=== PATIENT | female | born 1985 | race Hispanic/Latino ===

== ENCOUNTER 2017-09-09 13:32 | Emergency (ER) | payer SELFPAY ==
[2017-09-09] MEDS ORDERED: MORPHINE 4 MG/ML SYR ONE (14:25)
[2017-09-09] MEDS ORDERED: ONDANSETRON 4 MG (ODT) TAB ONE (14:25)
[2017-09-09 14:36] LABS: Urine Blood NEGATIVE (NEG); Urine Glucose NEGATIVE (NEG); Urine Protein NEGATIVE (NEG); Urine pH 5.5 (5.0-7.0)
--- NOTE | 2017-09-09 14:56 | RAD REPORT ---
EXAM DESCRIPTION: CT - Thorax Wo Con - 09/09/2017 2:36 pm CLINICAL HISTORY: Chest pain status post fall COMPARISON: None TECHNIQUE: Computed axial tomography of the chest was obtained. Contrast was not requested. All CT scans are performed using dose optimization technique as appropriate and may include automated exposure control or mA/KV adjustment according to patient size. FINDINGS: The evaluation of mediastinum, cait and vessels is limited secondary to lack of IV contras t administration. A pulmonary contusion is not present. A few areas scarring or subsegmental atelectasis are present wi thin the right middle lobe and lingula A mediastinal hematoma is not noted. A displaced rib fracture is not seen A pleural effusion is not present. A pericardial effusion is not present. IMPRESSION: A few areas scarring or subsegmental atelectasis are present within the right middle lo be and lingula. Otherwise unremarkable unenhanced CT chest
--- NOTE | 2017-09-09 15:00 | EDPHYS ---
Physician Documentation [facility] Name: Rain Walker Age: 31 yrs Sex: Female : 1985 Arrival Date: 09/09/2017 Time: 13:34 Bed 9 Private MD: None, None ED Physician Christopher Francois HPI: 09/09 14:14 This 31 yrs old Female presents to ER via Ambulatory with complaints of Fall jr8 Injury. 14:14 Details of fall: The patient fell from an upright position, while standing. Onset: The jr8 symptoms/episode began/occurred acutely, yesterday, last night. Associated injuries: The patient sustained injury to the chest, tenderness. Severity of symptoms: At their worst the symptoms were moderate, in the emergency department the symptoms are unchanged. The patient has not experienced similar symptoms in the past. The patient has not recently seen a physician. slipped getting out of shower. Landed on right chest. Hit side of tub. Pain with shortness of breath since incident . 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 - Social history:: Smoking status: Patient/guardian denies using tobacco. ROS: 14:14 Eyes: Negative for injury, pain, redness, and discharge, ENT: Negative for injury, jr8 pain, and discharge, Neck: Negative for injury, pain, and swelling, Abdomen/GI: Negative for abdominal pain, nausea, vomiting, diarrhea, and constipation, Back: Negative for injury and pain, MS/Extremity: Negative for injury and deformity, Skin: Negative for injury, rash, and discoloration, Neuro: Negative for headache, weakness, numbness, tingling, and seizure. 14:14 Cardiovascular: Positive for chest pain, with movement, Negative for edema, orthopnea, palpitations, paroxysmal nocturnal dyspnea. 14:14 Respiratory: Positive for shortness of breath, Negative for cough, dyspnea on exertion, hemoptysis, orthopnea, pleurisy, sputum production, wheezing. Exam: 14:14 Eyes: Pupils equal round and reactive to light, extra-ocular motions intact. Lids and jr8 lashes normal. Conjunctiva and sclera are non-icteric and not injected. Cornea within normal limits. Periorbital areas with no swelling, redness, or edema. ENT: Nares patent. No nasal discharge, no septal abnormalities noted. Tympanic membranes are normal and external auditory canals are clear. Oropharynx with no redness, swelling, or masses, exudates, or evidence of obstruction, uvula midline. Mucous membranes moist. Neck: Trachea midline, no thyromegaly or masses palpated, and no cervical lymphadenopathy. Supple, full range of motion without nuchal rigidity, or vertebral point tenderness. No Meningismus. Cardiovascular: Regular rate and rhythm with a normal S1 and S2. No gallops, murmurs, or rubs. Normal PMI, no JVD. No pulse deficits. Respiratory: Lungs have equal breath sounds bilaterally, clear to auscultation and percussion. No rales, rhonchi or wheezes noted. No increased work of breathing, no retractions or nasal flaring. Abdomen/GI: Soft, non-tender, with normal bowel sounds. No distension or tympany. No guarding or rebound. No evidence of tenderness throughout. Back: No spinal tenderness. No costovertebral tenderness. Full range of motion. Skin: Warm, dry with normal turgor. Normal color with no rashes, no lesions, and no evidence of cellulitis. MS/ Extremity: Pulses equal, no cyanosis. Neurovascular intact. Full, normal range of motion. Neuro: Awake and alert, GCS 15, oriented to person, place, time, and situation. Cranial nerves II-XII grossly intact. Motor strength 5/5 in all extremities. Sensory grossly intact. Cerebellar exam normal. Normal gait. 14:14 Chest/axilla: Inspection: normal, Palpation: tenderness, that is moderate, of the right lateral anterior chest, Axilla: are normal, Breasts: are normal, Lymph nodes: lymphadenopathy is not appreciated. Vital Signs: 13:43 BP 160 / 96; Pulse 100; Resp 18 S; Temp 97.5(TE); Pulse Ox 98% on R/A; Weight 122.47 iw kg; Height 5 ft. 8 in. (172.72 cm); Pain 9/10; 13:43 Body Mass Index 41.05 (122.47 kg, 172.72 cm) iw Pike Coma Score: 15:10 Eye Response: spontaneous(4). Verbal Response: oriented(5). Motor Response: obeys iw commands(6). Total: 15. Trauma Score (Adult): 13:44 Eye Response: spontaneous(1); Verbal Response: oriented(1); Motor Response: obeys iw commands(2); Systolic BP: > 89 mm Hg(4); Respiratory Rate: 10 to 29 per min(4); Pike Score: 15; Trauma Score: 12 MDM: 13:51 Patient medically screened. [facility] 14:59 Data reviewed: vital signs, nurses notes, radiologic studies, CT scan, and as a result, 8 I will discharge patient. Data interpreted: Pulse oximetry: on room air is 98 %. Interpretation: normal. Counseling: I had a detailed discussion with the patient and/or guardian regarding: the historical points, exam findings, and any diagnostic results supporting the discharge/admit diagnosis, radiology results, the need for outpatient follow up, a family practitioner, to return to the emergency department if symptoms worsen or persist or if there are any questions or concerns that arise at home. 09/09 14:25 Order name: Urine Dipstick--Ancillary (enter results); Complete Time: 14:48 [facility] 09/09 14:25 Order name: Urine --Ancillary (enter results); Complete Time: 14:48 [facility] 09/09 14:13 Order name: CT Chest Wo Con; Complete Time: 14:57 [facility] 09/09 14:13 Order name: Urine Test (obtain specimen); Complete Time: 14:22 [facility] 09/09 14:13 Order name: Urine Dipstick-Ancillary (obtain specimen); Complete Time: 14:22 [facility] Administered Medications: 14:30 Drug: morphine 4 mg Route: IM; Site: right deltoid; sg 15:00 Follow up: Response: No adverse reaction; Pain is decreased iw 14:34 Drug: Zofran 4 mg Route: PO; sg 15:00 Follow up: Response: No adverse reaction iw Disposition: 18:02 Co-signature as Attending Physician, Christopher Francois MD I agree with the assessment and kdr plan of care. Disposition: 09/09/17 15:00 Discharged to Home. Impression: Chest wall contusion . - Condition is Stable. - Discharge Instructions: Rib Contusion, Chest Wall Pain, Chest Contusion. - Prescriptions for Ibuprofen 800 mg Oral Tablet - take 1 tablet by ORAL route every 12 hours As needed take with food; 20 tablet. Tylenol- Codeine #3 300-30 mg Oral Tablet - take 2 tablets by ORAL route every 6 hours As needed; 20 tablet. - Medication Reconciliation Form, Thank You Letter, Antibiotic Education, Prescription Opioid Use form. - Follow up: Private Physician; When: 5 - 6 days; Reason: Recheck today's complaints, Continuance of care, Re-evaluation by your physician. - Problem is new. - Symptoms have improved. Signatures: Dispatcher [employer] EDMS Jose Morejon RN RN sg Christopher Francois MD MD kdr Taylor Mcnulty RN RN iw Efren Swartz PA PA jr8 Corrections: (The following items were deleted from the chart) 15:11 15:00 09/09/2017 15:00 Discharged to Home. Impression: Chest wall contusion . Condition iw is Stable. Forms are Medication Reconciliation Form, Thank You Letter, Antibiotic Education, Prescription Opioid Use. Follow up: Private Physician; When: 5 - 6 days; Reason: Recheck today's complaints, Continuance of care, Re-evaluation by your physician. Problem is new. Symptoms have improved. jr8
--- NOTE | 2017-09-09 15:00 | ER ---
Nurse's Notes [facility] Name: Rain Walker Age: 31 yrs Sex: Female : 1985 Arrival Date: 09/09/2017 Time: 13:34 Bed 9 Private MD: None, None Diagnosis: Chest wall contusion Presentation: 09/09 13:41 Presenting complaint: Patient states: fell yesterday, slipped on shower mat, fell right iw side, hit bathtub, now having pain and difficulty breathing when she lies down. Care prior to arrival: None. Mechanism of Injury: Fall from standing position. Trauma event details: Injury occurred in the [facility], Injury occurred: at home. Injury occurred: September 08, 2017. 13:41 Acuity: SERGO 3 iw 13:41 Method Of Arrival: Ambulatory iw 13:44 Transition of care: patient was not received from another setting of care. Onset of iw symptoms was September 09, 2017. Initial Sepsis Screen: Does the patient meet any 2 criteria? No. Patient's initial sepsis screen is negative. Does the patient have a suspected source of infection? No. Patient's initial sepsis screen is negative. 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 - Social history:: Smoking status: Patient/guardian denies using tobacco. Screenin:43 Abuse screen: Denies threats or abuse. Denies injuries from another. Tuberculosis iw screening: No symptoms or risk factors identified. 15:10 Nutritional screening: No deficits noted. Fall Risk Fall in past 12 months (25 points). iw Primary Survey: 14:12 A: Airway: patent. Breathing/Chest: Respiratory pattern: regular, Respiratory effort: iw spontaneous. Circulation: Cardiac rhythm: Heart tones present. Pulses: palpable right radial artery and left radial artery. Skin color: pink, Skin temperature: warm, dry. Disability Alert. 15:10 Reassessment Airway Airway Patent Breathing/Chest Respiratory pattern Respiratory iw effort Spontaneous Unlabored. Assessment: 13:44 General: Appears uncomfortable, Behavior is cooperative, crying. Pain: Complains of iw pain in anterior aspect of right upper chest, right lateral posterior chest and right breast Pain currently is 9 out of 10 on a pain scale. Neuro: Level of Consciousness is awake, alert, obeys commands. Vital Signs: 13:43 BP 160 / 96; Pulse 100; Resp 18 S; Temp 97.5(TE); Pulse Ox 98% on R/A; Weight 122.47 iw kg; Height 5 ft. 8 in. (172.72 cm); Pain 9/10; 13:43 Body Mass Index 41.05 (122.47 kg, 172.72 cm) iw Webb Coma Score: 15:10 Eye Response: spontaneous(4). Verbal Response: oriented(5). Motor Response: obeys iw commands(6). Total: 15. Trauma Score (Adult): 13:44 Eye Response: spontaneous(1); Verbal Response: oriented(1); Motor Response: obeys iw commands(2); Systolic BP: > 89 mm Hg(4); Respiratory Rate: 10 to 29 per min(4); Trudi Score: 15; Trauma Score: 12 ED Course: 13:34 Patient arrived in ED. mr 13:35 None, None is Private Physician. mr 13:41 Patient has correct armband on for positive identification. iw 13:42 Triage completed. iw 13:45 Arm band placed on. iw 13:51 Efren Swartz PA is PHCP. jr8 13:51 Christopher Francois MD is Attending Physician. jr8 14:12 Taylor Mcnulty, KING is Primary Nurse. iw 14:34 CT completed. Patient tolerated procedure well. Patient moved to CT via wheelchair. sj Patient moved back from CT. 14:35 CT Chest Wo Con In Process Unspecified. EDMS 15:10 Patient maintains SpO2 saturation greater than 95% on room air. Thermoregulation: warm iw blanket given to patient. 15:10 No provider procedures requiring assistance completed. Patient did not have IV access iw during this emergency room visit. Administered Medications: 14:30 Drug: morphine 4 mg Route: IM; Site: right deltoid; sg 15:00 Follow up: Response: No adverse reaction; Pain is decreased iw 14:34 Drug: Zofran 4 mg Route: PO; sg 15:00 Follow up: Response: No adverse reaction iw Intake: 15:10 PO: 0ml; Total: 0ml. iw Outcome: 15:00 Discharge ordered by MD. butler 15:10 Discharged to home ambulatory. iw 15:10 Condition: good 15:10 Patient's length of stay was not longer than 2 hours. 15:10 Discharge instructions given to patient, Instructed on discharge instructions, follow iw up and referral plans. medication usage, Demonstrated understanding of instructions, follow-up care, medications, Prescriptions given X 2. 15:11 Patient left the ED. iw Signatures: Dispatcher [employer] EDMS Jose Morejon RN RN Kaitlin Best Susan sj Williams, Irene, RN RN Efren Swartz PA PA jr8
== END 2017-09-09 15:11 | disposition home or self-care (01) ==
LOC: ER 13:32
DX: S20.211A Contusion of right front wall of thorax, initial encounter (principal); W01.0XXA Fall on same level from slipping, tripping and stumbling without subsequent striking against object, initial encounter; Y93.89 Activity, other specified; Y92.002 Bathroom of unspecified non-institutional (private) residence as the place of occurrence of the external cause; Z88.0 Allergy status to penicillin
CPT/HCPCS: 71250; 81003; 81025; 96372; 99284

== ENCOUNTER 2018-05-27 02:22 | Emergency (ER) | payer SELFPAY ==
[2018-05-27] MEDS ORDERED: NA CHLORIDE 0.9% 1,000 ML ONE (03:12)
[2018-05-27 03:32] LABS: Absolute Lymphocytes (CBC) 2.3 K/uL (0.7-4.9); Absolute Monocytes 0.4 K/uL (0.1-1.3); Absolute Neutrophil 4.1 K/uL (1.8-8.0); BUN Blood Urea Nitrogen 11 mg/dL (7-18); Basophils % 0.6 % (0-1.3); Bicarbonate 25 mmol/L (21-32); Creatine Phosphokinase 86 U/L (26-192); Eosinophils % 2.2 % (0-4.4); Glucose Level 154 mg/dL (74-106); Hematocrit 44.2 % (36.0-45.0); Lymphocytes % 32.7 % (15.3-44.8); MPV 9.2 fL (7.6-11.3); Monocytes % 5.9 % (3.3-12.3); Potassium 3.6 mmol/L (3.5-5.1); RBC Red Blood Cell Count 5.01 M/uL (3.86-4.86); Sodium Level 140 mmol/L (136-145)
[2018-05-27 03:44] LABS: Urine Bacteria <20 /HPF (<20); Urine RBC NONE SEEN /HPF (NONE SEEN)
[2018-05-27 03:45] LABS: Urine Culture Reflex Order NOT NEEDED
[2018-05-27 03:48] LABS: Urine Blood NEGATIVE (NEG); Urine Glucose NEGATIVE (NEG); Urine Protein NEGATIVE (NEG)
--- NOTE | 2018-05-27 03:52 | ER ---
Nurse's Notes [facility] Name: Rain Walker Age: 32 yrs Sex: Female : 1985 Arrival Date: 05/27/2018 Time: 02:25 Bed 6 Private MD: Diagnosis: Streptococcal infection, unspecified site Presentation: 05/27 02:38 Presenting complaint: Patient states: Fever, body aches, chills, fatigue x 1 week with lp1 no improvement; States "I'm just worried because my dad has a lot of health problems and I don't know if I have them"; Denies any N/V/D. Transition of care: patient was not received from another setting of care. Onset of symptoms was May 27, 2018. Risk Assessment: Do you want to hurt yourself or someone else? Patient reports no desire to harm self or others. Initial Sepsis Screen: Does the patient meet any 2 criteria? No. Patient's initial sepsis screen is negative. Does the patient have a suspected source of infection? No. Patient's initial sepsis screen is negative. Care prior to arrival: None. 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 - Family history:: Father has/had diabetes, heart disease, hypertension. - Social history:: Smoking status: Patient uses tobacco products, smokes one pack cigarettes per day. - Ebola Screening: : No symptoms or risks identified at this time. - Hospitalizations: : No recent hospitalization is reported. Screenin:41 Abuse screen: Denies threats or abuse. Denies injuries from another. Nutritional lp1 screening: No deficits noted. Tuberculosis screening: No symptoms or risk factors identified. Fall Risk None identified. Assessment: 03:16 General: Appears uncomfortable, Behavior is calm, cooperative. Pain: Complains of pain ed1 in generalized Pain currently is 10 out of 10 on a pain scale. Quality of pain is described as aching, Pain began 2-3 days ago. Is continuous. Neuro: Level of Consciousness is awake, alert, obeys commands, Oriented to person, place, time, situation. Cardiovascular: Denies chest pain, Heart tones S1 S2 present. Respiratory: Reports cough that is non-productive, dry, Airway is patent Respiratory effort is even, unlabored, Respiratory pattern is regular, symmetrical, Breath sounds are clear bilaterally. GI: Abdomen is non-distended, Bowel sounds present X 4 quads. Abd is soft and non tender X 4 quads. Reports nausea, Patient currently denies diarrhea, vomiting. : No signs and/or symptoms were reported regarding the genitourinary system. EENT: Oral mucosa is moist. Derm: Skin is intact, is healthy with good turgor, Skin is dry, Skin is normal, Skin temperature is hot. Musculoskeletal: Circulation, motion, and sensation intact. Range of motion: intact in all extremities. 04:18 Reassessment: Patient appears in no apparent distress at this time. Patient and/or ed1 family updated on plan of care and expected duration. Pain level reassessed. Patient is alert, oriented x 3, equal unlabored respirations, skin warm/dry/pink. Patient states feeling better. Patient states symptoms have improved. Vital Signs: 02:39 BP 149 / 79; Pulse 98; Resp 18; Temp 99.6(O); Pulse Ox 97% on R/A; Weight 131.54 kg; ed1 Height 5 ft. 8 in. (172.72 cm); Pain 10/10; 04:18 BP 130 / 72; Pulse 86; Resp 18; Temp 98.4(O); Pulse Ox 100% on R/A; Pain 8/10; ed1 02:39 Body Mass Index 44.09 (131.54 kg, 172.72 cm) ed1 ED Course: 02:25 Patient arrived in ED. al2 02:26 Keisha Adamson, KING is Primary Nurse. ed1 02:27 Gomez Savage MD is Attending Physician. rn 02:39 Triage completed. lp1 02:39 Arm band placed on left wrist. lp1 03:16 Patient has correct armband on for positive identification. Placed in gown. Bed in low ed1 position. Call light in reach. Side rails up X 1. Pulse ox on. NIBP on. Door closed. Noise minimized. Lights dimmed. 03:16 Initial lab(s) drawn, by ED staff, sent to lab. Flu and/or RSV swab sent to lab. Strep ed1 swab sent to lab. Inserted saline lock: 22 gauge in right antecubital area, using aseptic technique. Blood collected. 04:18 No provider procedures requiring assistance completed. IV discontinued, intact, ed1 bleeding controlled, No redness/swelling at site. Pressure dressing applied. Administered Medications: 03:19 Drug: NS 0.9% 1000 ml Route: IV; Rate: 1000 ml; Site: right antecubital; ed1 04:17 Follow up: IV Status: Completed infusion; IV Intake: 1000ml ed1 03:56 Drug: Zithromax 500 mg Route: PO; ed1 04:17 Follow up: Response: No adverse reaction ed1 Intake: 04:17 IV: 1000ml; Total: 1000ml. ed1 Outcome: 03:52 Discharge ordered by MD. rn 04:18 Discharged to home ambulatory. ed1 04:18 Condition: good 04:18 Discharge instructions given to patient, Instructed on discharge instructions, follow up and referral plans. medication usage, Demonstrated understanding of instructions, follow-up care, medications, Prescriptions given X 1. 04:19 Patient left the ED. ed1 Signatures: Gomez Savage MD MD rn Riggs, Erika RN RN ed1 Karlie Sterling RN RN lp1 Jamia Prabhakar al2 Corrections: (The following items were deleted from the chart) 03:16 02:39 Temp 99.6F Oral; 131.54 kg; Height 5 ft. 8 in.; BMI: 44.0; Pain 10/10; lp1 ed1
--- NOTE | 2018-05-27 03:52 | EDPHYS ---
Physician Documentation [facility] Name: Rain Walker Age: 32 yrs Sex: Female : 1985 Arrival Date: 05/27/2018 Time: 02:25 Bed 6 Private MD: ED Physician Gomez Savage HPI: 05/27 02:36 This 32 yrs old Female presents to ER via Unassigned with complaints of BODY rn ACHES, FEVER. 02:36 Reports fever, chills, generalized muscle aches, fatigue, present for 1 week. Reports rn having trouble sleeping because of chills and anxious that she inherited medical problems from her father. Reports diabetic on oral meds, and glucose ranging around 120s. . Onset: The symptoms/episode began/occurred 1 week(s) ago. Severity of symptoms: At their worst the symptoms were mild in the emergency department the symptoms are unchanged. The patient has not experienced similar symptoms in the past. The patient has not recently seen a physician. 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 - Family history:: Father has/had diabetes, heart disease, hypertension. - Social history:: Smoking status: Patient uses tobacco products, smokes one pack cigarettes per day. - Ebola Screening: : No symptoms or risks identified at this time. - Hospitalizations: : No recent hospitalization is reported. ROS: 02:36 Constitutional: + fever and chills Eyes: Negative for injury, pain, redness, and corn husker, ENT: Negative for injury, pain, and discharge, Neck: Negative for injury, pain, and swelling, Cardiovascular: Negative for chest pain, palpitations, and edema, Respiratory: Negative for shortness of breath, cough, wheezing, and pleuritic chest pain, Abdomen/GI: Negative for abdominal pain, nausea, vomiting, diarrhea, and constipation, Back: + lower back aches : Negative for injury, bleeding, discharge, and swelling, MS/Extremity: Negative for injury and deformity, + cramps and sensitive lower extremities Skin: Negative for injury, rash, and discoloration, Neuro: Negative for headache, weakness, numbness, tingling, and seizure. Exam: 02:36 Constitutional: This is a well developed, well nourished patient who is awake, alert, rn appears anxious and tearful. Walked to room without difficulty. Head/Face: Normocephalic, atraumatic. Eyes: Pupils equal round and reactive to light, extra-ocular motions intact. Lids and lashes normal. Conjunctiva and sclera are non-icteric and not injected. Cornea within normal limits. Periorbital areas with no swelling, redness, or edema. ENT: MMM, no stridor, no oral lesions, no exudate Neck: Trachea midline, no thyromegaly or masses palpated, and no cervical lymphadenopathy. Supple, full range of motion without nuchal rigidity, or vertebral point tenderness. No Meningismus. Cardiovascular: Regular rate and rhythm, No pulse deficits. Respiratory: No increased work of breathing, no retractions or nasal flaring. Abdomen/GI: soft, non-tender Skin: Warm, dry, no evidence of cellulitis. MS/ Extremity: Pulses equal, no cyanosis. Neurovascular intact. Full, normal range of motion. Equal circumference. Neuro: Awake and alert, GCS 15, oriented to person, place, time, and situation. Cranial nerves II-XII grossly intact. Motor strength 5/5 in all extremities. Sensory grossly intact. Cerebellar exam normal. Normal gait. Vital Signs: 02:39 BP 149 / 79; Pulse 98; Resp 18; Temp 99.6(O); Pulse Ox 97% on R/A; Weight 131.54 kg; ed1 Height 5 ft. 8 in. (172.72 cm); Pain 10/10; 04:18 BP 130 / 72; Pulse 86; Resp 18; Temp 98.4(O); Pulse Ox 100% on R/A; Pain 8/10; ed1 02:39 Body Mass Index 44.09 (131.54 kg, 172.72 cm) ed1 MDM: 02:27 Patient medically screened. rn 03:50 Differential Diagnosis flu, mono, strep, UTI, flu. Data reviewed: vital signs, nurses rn notes, lab test result(s), and as a result, I will discharge patient. Counseling: I had a detailed discussion with the patient and/or guardian regarding: the historical points, exam findings, and any diagnostic results supporting the discharge/admit diagnosis, lab results, the need for outpatient follow up, to return to the emergency department if symptoms worsen or persist or if there are any questions or concerns that arise at home. Special discussion: I discussed with the patient/guardian in detail that at this point there is no indication for admission to the hospital. It is understood, however, that if the symptoms persist or worsen the patient needs to return immediately for re-evaluation. 05/27 02:35 Order name: CBC with Diff; Complete Time: 03:48 rn 05/27 02:35 Order name: Basic Metabolic Panel; Complete Time: 03:48 rn 05/27 02:35 Order name: Urine Microscopic Only; Complete Time: 03:48 rn 05/27 02:35 Order name: Influenza Screen (a \T\ B); Complete Time: 03:48 rn 05/27 02:35 Order name: Strep; Complete Time: 03:48 rn 05/27 02:35 Order name: [place] Screen Profile; Complete Time: 03:48 rn 05/27 02:35 Order name: IV Start; Complete Time: 03:20 rn 05/27 02:35 Order name: Urine Test (obtain specimen); Complete Time: 03:19 rn 05/27 02:35 Order name: Procalcitonin; Complete Time: 03:48 rn 05/27 02:35 Order name: CK; Complete Time: 03:48 rn 05/27 03:27 Order name: Urine Dipstick--Ancillary (enter results); Complete Time: 04:01 ag4 05/27 03:27 Order name: Urine --Ancillary (enter results); Complete Time: 04:01 ag4 05/27 02:35 Order name: Urine Dipstick-Ancillary (obtain specimen); Complete Time: 03:20 rn Administered Medications: 03:19 Drug: NS 0.9% 1000 ml Route: IV; Rate: 1000 ml; Site: right antecubital; ed1 04:17 Follow up: IV Status: Completed infusion; IV Intake: 1000ml ed1 03:56 Drug: Zithromax 500 mg Route: PO; ed1 04:17 Follow up: Response: No adverse reaction ed1 Disposition: 05/27/18 03:52 Discharged to Home. Impression: Streptococcal infection, unspecified site. - Condition is Stable. - Discharge Instructions: Strep Throat. - Prescriptions for Zithromax Z- Manohar 250 mg Oral Tablet - take 1 tablet by ORAL route as directed for 5 days Day 1 - take two (2) tablets one time. Day 2, 3, 4 , 5 take one (1) tablet once daily.; 6 tablet. - Medication Reconciliation Form, Thank You Letter, Antibiotic Education, Prescription Opioid Use, Work release form form. - Follow up: Private Physician; When: As needed; Reason: Recheck today's complaints, Re-evaluation by your physician. - Problem is new. - Symptoms have improved. Signatures: Dispatcher [employer] EDMS Gomez Savage MD MD rn Keisha Adamson RN RN ed1 Karlie Sterling RN RN lp1 Corrections: (The following items were deleted from the chart) 04:19 03:52 05/27/2018 03:52 Discharged to Home. Impression: Streptococcal infection, ed1 unspecified site. Condition is Stable. Forms are Medication Reconciliation Form, Thank You Letter, Antibiotic Education, Prescription Opioid Use. Follow up: Private Physician; When: As needed; Reason: Recheck today's complaints, Re-evaluation by your physician. Problem is new. Symptoms have improved. rn
[2018-05-27] MEDS ORDERED: AZITHROMYCIN 250 MG TAB ONE (04:04)
== END 2018-05-27 04:19 | disposition home or self-care (01) ==
LOC: ER 02:22
DX: A49.1 Streptococcal infection, unspecified site (principal); F17.210 Nicotine dependence, cigarettes, uncomplicated
CPT/HCPCS: 36415; 80048; 81003; 81015; 81025; 82550; 84145; 85025; 86308; 87081; 87804; 96360; 99284; J7030

== ENCOUNTER 2019-10-04 06:28 | Emergency (ER) | payer OTHER, SELFPAY ==
--- NOTE | 2019-10-04 06:37 | EDPHYS ---
Physician Documentation [facility] Name: Rain Walker Age: 33 yrs Sex: Female : 1985 Arrival Date: 10/04/2019 Time: 06:29 Bed 5 Private MD: ED Physician Abner Espinzoa HPI: 10/03 06:41 This 33 yrs old Female presents to ER via Ambulatory with complaints of snw Toothache. 06:41 The patient presents with pain, swelling. The problem is located in the upper left snw second molar (#15). Onset: The symptoms/episode began/occurred 2 day(s) ago, and became persistent. Duration: The symptoms are continuous. Modifying factors: the symptoms are aggravated by pt states she thinks she got some food stuck in the area a few days ago. Associated signs and symptoms: Pertinent negatives: anorexia, fever, inability to eat. Severity of symptoms: At their worst the symptoms were moderate, in the emergency department the symptoms are unchanged. The patient has experienced similar episodes in the past. It is unknown whether or not the patient has recently seen a physician. has dentist and will make an appt when they open. MASTIC MAN: 06:44 LMP N/A - Irregular menses rr5 Historical: - Allergies: 06:35 PENICILLINS; rr5 06:35 Amoxicillin; rr5 - Home Meds: 06:35 70/30 insulin SQ [Active]; rr5 - PMHx: 06:35 Diabetes - IDDM; High Cholesterol; Hypertension; rr5 - PSHx: 06:35 None; rr5 - Immunization history:: Adult Immunizations up to date. - Social history:: Smoking status: Reported history of juuling and/or vaping. Patient/guardian denies using alcohol, street drugs. ROS: 06:38 Constitutional: Negative for fever, chills, and weight loss, Eyes: Negative for injury, snw pain, redness, and discharge, Neck: Negative for injury, pain, and swelling, Cardiovascular: Negative for chest pain, palpitations, and edema, Respiratory: Negative for shortness of breath, cough, wheezing, and pleuritic chest pain, Abdomen/GI: Negative for abdominal pain, nausea, vomiting, diarrhea, and constipation, Back: Negative for injury and pain, : Negative for injury, bleeding, discharge, and swelling, MS/Extremity: Negative for injury and deformity, Skin: Negative for injury, rash, and discoloration, Neuro: Negative for headache, weakness, numbness, tingling, and seizure, Psych: Negative for depression, anxiety, suicide ideation, homicidal ideation, and hallucinations. 06:38 ENT: Positive for dental pain, Gum pain Exam: 06:38 Constitutional: This is a well developed, well nourished patient who is awake, alert, snw and in no acute distress. Head/Face: Normocephalic, atraumatic. Eyes: Pupils equal round and reactive to light, extra-ocular motions intact. Lids and lashes normal. Conjunctiva and sclera are non-icteric and not injected. Cornea within normal limits. Periorbital areas with no swelling, redness, or edema. Neck: Trachea midline, no thyromegaly or masses palpated, and no cervical lymphadenopathy. Supple, full range of motion without nuchal rigidity, or vertebral point tenderness. No Meningismus. Chest/axilla: Normal chest wall appearance and motion. Nontender with no deformity. No lesions are appreciated. Cardiovascular: Regular rate and rhythm with a normal S1 and S2. No gallops, murmurs, or rubs. Normal PMI, no JVD. No pulse deficits. Respiratory: Lungs have equal breath sounds bilaterally, clear to auscultation and percussion. No rales, rhonchi or wheezes noted. No increased work of breathing, no retractions or nasal flaring. Abdomen/GI: Soft, non-tender, with normal bowel sounds. No distension or tympany. No guarding or rebound. No evidence of tenderness throughout. Back: No spinal tenderness. No costovertebral tenderness. Full range of motion. Skin: Warm, dry with normal turgor. Normal color with no rashes, no lesions, and no evidence of cellulitis. MS/ Extremity: Pulses equal, no cyanosis. Neurovascular intact. Full, normal range of motion. Neuro: Awake and alert, GCS 15, oriented to person, place, time, and situation. Cranial nerves II-XII grossly intact. Motor strength 5/5 in all extremities. Sensory grossly intact. Cerebellar exam normal. Normal gait. Psych: Awake, alert, with orientation to person, place and time. Behavior, mood, and affect are within normal limits. 06:38 ENT: External ear(s): are unremarkable, Nose: is normal, Mouth: is normal, Posterior pharynx: is normal, Dental exam: dental caries, gum swelling, that is mild, that is moderate, specifically in the upper left second molar (#15). Vital Signs: 06:35 BP 152 / 90; Pulse 99; Resp 19; Temp 98.2; Pulse Ox 97% ; Weight 136.08 kg; Height 5 rr5 ft. 8 in. (172.72 cm); Pain 9/10; 06:35 Body Mass Index 45.61 (136.08 kg, 172.72 cm) rr5 MDM: 06:32 Patient medically screened. snw 06:40 Data reviewed: vital signs, nurses notes. Data interpreted: Pulse oximetry: on room air snw is 99 %. Interpretation: normal. Counseling: I had a detailed discussion with the patient and/or guardian regarding: the historical points, exam findings, and any diagnostic results supporting the discharge/admit diagnosis, the need for outpatient follow up, to return to the emergency department if symptoms worsen or persist or if there are any questions or concerns that arise at home. Response to treatment: There is no appreciated change of the patient's symptoms at this time, patient is well hydrated. Special discussion: Based on the history and exam findings, there is no indication for further emergent testing or inpatient evaluation. I discussed with the patient/guardian the need to see a dentist for further evaluation of the symptoms. Special discussion: vaping cessation. 10/03 06:35 Order name: Ice pack; Complete Time: 06:45 snw Administered Medications: 06:42 Drug: Clindamycin 300 mg Route: PO; ea 06:46 Follow up: Response: Medication administered at discharge. rr5 06:42 Drug: TORadol 30 mg Route: IM; Site: right deltoid; ea 06:45 Follow up: Response: Medication administered at discharge. rr5 Disposition: 10/04 00:06 Co-signature as Attending Physician, Abner Espinoza MD. [email or web address] Disposition: 10/04/19 06:36 Discharged to Home. Impression: Dental caries, unspecified. - Condition is Stable. - Discharge Instructions: Dental Abscess, Dental Pain, Diet and Dental Disease. - Prescriptions for chlorhexidine gluconate 0.12 % Mucous Membrane mouthwash - place 15 milliliter by MUCOUS MEMBRANE route 2 times per day after brushing teeth, swish in mouth for 30 seconds then spit out; 480 milliliter. Clindamycin HCl 150 mg Oral Capsule - take 1 capsule by ORAL route every 6 hours for 10 days; 40 capsule. Diclofenac Sodium 75 mg Oral Tablet Sustained Release - take 1 tablet by ORAL route 2 times per day; 30 tablet. - Work release form, Medication Reconciliation Form, Thank You Letter, Antibiotic Education, Prescription Opioid Use form. - Follow up: Private Physician; When: 1 - 2 days; Reason: Recheck today's complaints, Continuance of care, Re-evaluation by your physician. Follow up: Emergency Department; When: As needed; Reason: Worsening of condition. Signatures: Ana Maria Dave, REAL ESTATE OFFICER-C REAL ESTATE OFFICER-Csnw Ashley Walker RN RN ea Roque, Raymond, RN RN rr5 Abner Espinoza MD MD [email or web address] Corrections: (The following items were deleted from the chart) 10/03 06:45 06:36 10/04/2019 06:36 Discharged to Home. Impression: Dental caries, unspecified. ea Condition is Stable. Forms are Medication Reconciliation Form, Thank You Letter, Antibiotic Education, Prescription Opioid Use. Follow up: Private Physician; When: 1 - 2 days; Reason: Recheck today's complaints, Continuance of care, Re-evaluation by your physician. Follow up: Emergency Department; When: As needed; Reason: Worsening of condition. snw
--- NOTE | 2019-10-04 06:45 | ER ---
Nurse's Notes [facility] Name: Rain Walker Age: 33 yrs Sex: Female : 1985 Arrival Date: 10/04/2019 Time: 06:29 Bed 5 Private MD: Diagnosis: Dental caries, unspecified Presentation: 10/03 06:35 Chief complaint: Patient states: I am having toothache and abscess on my left upper rr5 side. started 2 days ago. denies fever. 06:35 Coronavirus screen: Proceed with normal triage. Ebola Screen: Patient negative for rr5 fever greater than or equal to 101.5 degrees Fahrenheit, and additional compatible Ebola Virus Disease symptoms Patient denies exposure to infectious person. Patient denies travel to an Ebola-affected area in the 21 days before illness onset. Initial Sepsis Screen: Does the patient meet any 2 criteria? No. Patient's initial sepsis screen is negative. Does the patient have a suspected source of infection? No. Patient's initial sepsis screen is negative. Risk Assessment: Do you want to hurt yourself or someone else? Patient reports no desire to harm self or others. Onset of symptoms was October 02, 2019. 06:35 Method Of Arrival: Ambulatory rr5 06:35 Acuity: SERGO 4 rr5 KNIFE CHANGER: 06:44 LMP N/A - Irregular menses rr5 Historical: - Allergies: 06:35 PENICILLINS; rr5 06:35 Amoxicillin; rr5 - Home Meds: 06:35 70/30 insulin SQ [Active]; rr5 - PMHx: 06:35 Diabetes - IDDM; High Cholesterol; Hypertension; rr5 - PSHx: 06:35 None; rr5 - Immunization history:: Adult Immunizations up to date. - Social history:: Smoking status: Reported history of juuling and/or vaping. Patient/guardian denies using alcohol, street drugs. Screenin:43 Abuse screen: Denies threats or abuse. Nutritional screening: No deficits noted. ea Tuberculosis screening: No symptoms or risk factors identified. Fall Risk None identified. Assessment: 06:43 General: Appears in no apparent distress. Behavior is calm, cooperative, appropriate ea for age. Pain: Complains of pain in upper left second molar (#15). Neuro: Level of Consciousness is awake, alert, obeys commands, Oriented to person, place, time, situation. Cardiovascular: Patient's skin is warm and dry. Respiratory: Airway is patent Respiratory effort is even, unlabored, Respiratory pattern is regular, symmetrical. EENT: Reports pain in upper left second molar (#15). Vital Signs: 06:35 BP 152 / 90; Pulse 99; Resp 19; Temp 98.2; Pulse Ox 97% ; Weight 136.08 kg; Height 5 rr5 ft. 8 in. (172.72 cm); Pain 9/10; 06:35 Body Mass Index 45.61 (136.08 kg, 172.72 cm) rr5 ED Course: 06:29 Patient arrived in ED. ds1 06:31 Ana Maria Dave FNP-C [facility]. snw 06:31 Abner Espinoza MD is Attending Physician. snw 06:35 Arm band placed on right wrist. rr5 06:37 Ferny Lala, RN is Primary Nurse. rr5 06:40 Triage completed. rr5 06:43 Patient has correct armband on for positive identification. Bed in low position. Call ea light in reach. 06:44 No provider procedures requiring assistance completed. Patient did not have IV access ea during this emergency room visit. Administered Medications: 06:42 Drug: Clindamycin 300 mg Route: PO; ea 06:46 Follow up: Response: Medication administered at discharge. rr5 06:42 Drug: TORadol 30 mg Route: IM; Site: right deltoid; ea 06:45 Follow up: Response: Medication administered at discharge. rr5 Outcome: 06:36 Discharge ordered by . snw 06:45 Discharged to home ambulatory. ea 06:45 Condition: stable 06:45 Discharge instructions given to patient, Instructed on discharge instructions, follow up and referral plans. medication usage, Demonstrated understanding of instructions, follow-up care, medications, Prescriptions given X 3. 06:45 Patient left the ED. ea Signatures: Ana Maria Dave FNP-C FNP-Rebecca Yuan ds1 Ashley Walker, RN RN Ferny Cooper, RN RN rr5
[2019-10-04] MEDS ORDERED: KETOROLAC 30 MG/ML INJ ONE (06:46)
[2019-10-04 06:56] VITALS: BP 152/90; TEMP 98.2; O2SAT 97
== END 2019-10-04 06:45 | disposition home or self-care (01) ==
LOC: ER 06:28
DX: K02.9 Dental caries, unspecified (principal); I10 Essential (primary) hypertension; E11.9 Type 2 diabetes mellitus without complications; Z79.4 Long term (current) use of insulin; Z88.0 Allergy status to penicillin; Z88.1 Allergy status to other antibiotic agents
CPT/HCPCS: 96372; 99283